=== PATIENT | female | born 1980 | race Caucasian/White ===

== ENCOUNTER → 2017-04-02 | Outpatient (CLI) | payer OTHER ==
[~2017-04-02] MED LIST: DOCU100C37 PO; HYDR-34 PO; IBUP-1773 PO; MEDR150V IM; OMEP20CA12 PO; SIME80TA16 PO; TRAZ-28 PO
--- NOTE | 2017-04-02 18:27 | Diagnostic Imaging Report ---
INDICATION: Bilateral breast lumps. No prior mammograms are available for comparison. This is a baseline study. The current study was also evaluated with a Computer Aided Detection (CAD) system. Both breasts are heterogeneously dense, limiting the sensitivity of mammography. BB markers were placed at the areas of palpable abnormality in the upper outer portions of both breasts. There are lobulated circumscribed masses noted bilaterally. Larger mass is in the upper outer right breast at posterior depth, presumably a cyst or fibroadenoma. Slightly smaller circumscribed lesion in the upper outer left breast at mid anterior depth is seen, suggestive of a cyst or fibroadenoma. These areas will be evaluated with ultrasound. No other masses are seen. No malignant appearing microcalcifications are identified. The axillae are unremarkable. IMPRESSION: Lobulated circumscribed masses in the upper outer aspects of both breasts, with fairly benign features, as described above. Further evaluation with ultrasound is recommended. ACR BI-RADS Category 0: Incomplete. (Needs additional imaging evaluation). Result letter will be mailed to the patient. Note: At least 10% of breast cancer is not imaged by mammography. Dictated by: Dictated on workstation # [id number]
--- NOTE | 2017-04-02 18:31 | Diagnostic Imaging Report ---
INDICATION: Bilateral breast lumps and abnormal mammogram. COMPARISON: Comparison is made with diagnostic mammogram earlier the same day. FINDINGS: RIGHT BREAST: Sonographic interrogation of the upper-outer right breast was performed. There is a macrolobulated hypoechoic solid appearing mass at the 10:30 location of the right breast, 7 cm from the nipple measuring 2.1 x 1.8 x 2.6 cm. No definite internal blood flow is seen. No posterior acoustic shadowing is seen. No other masses on the right are identified. LEFT BREAST: Sonographic interrogation of the outer left breast was performed. There is a macrolobulated hypoechoic solid appearing mass at the 3 o'clock location of the left breast, 4 cm from the nipple. This measures 1.8 x 1.1 x 1.8 cm. No internal vascularity is seen. No posterior acoustic shadowing is identified. No other masses are identified. IMPRESSION: Bilateral circumscribed, macrolobulated solid masses corresponding with the areas of palpable abnormality and the mammographic abnormalities. Imaging features are most suggestive of fibroadenomas. Even so, followup bilateral breast ultrasound in six months is recommended to confirm stability. If patient desires, ultrasound core biopsy of the larger lesion in the right breast which causes the patient pain could be performed. ACR BI-RADS Category 3: Probably benign findings. Dictated by: Dictated on workstation # [id number]
== END ==
LOC: RAD 08:08
PROVIDERS: ATTEND Nurse Practitioner Family
DX: N63.21 Unspecified lump in the left breast, upper outer quadrant (principal); N63.11 Unspecified lump in the right breast, upper outer quadrant
CPT/HCPCS: 76642; 77066

== ENCOUNTER 2017-05-27 05:33 | Outpatient (CLI) | payer OTHER ==
[~2017-05-27] VITALS: Ht 162.6 cm; Wt 74.4 kg
== END 2017-05-27 10:14 ==
LOC: PREOP 05:33
PROVIDERS: ATTEND Surgery
DX: Z01.818 Encounter for other preprocedural examination (principal); N63.10 Unspecified lump in the right breast, unspecified quadrant

== ENCOUNTER 2017-05-31 11:21 | Day surgery (SDC) | payer OTHER ==
[~2017-05-31] VITALS: Ht 162.6 cm; Wt 74.4 kg
[~2017-05-31 11:21] MED LIST changes: +TRAZ-189 PO; -TRAZ-28 PO
[2017-05-31] MEDS ORDERED: ceFAZolin 2 GM IV Premixed 50 ML IV ONE (11:45)
[2017-05-31 11:50] VITALS: BP 123/94
[2017-05-31] MEDS: LACTATED RINGERS 1,000 ML IV PRN ×3 (11:55→16:46)
[2017-05-31] MEDS ORDERED: CATHETER FLUSH 10 ML SYR IV PRN (12:00)
[2017-05-31] MEDS ORDERED: ONDANSETRON 4 MG/2 ML (SDV) Z0FRAN ONE (12:48)
[2017-05-31] MEDS ORDERED: SEVOFLURANE (ULTANE) 15 ML INHAL SOLN ONE (12:48)
[2017-05-31] MEDS ORDERED: DEXAMETHASONE 10 MG/ML (DECADRON) 1 ML VIAL ONE (12:48)
[2017-05-31] MEDS ORDERED: LIDOCAINE PF 2% 5 ML (XYLOCAINE) VIAL ONE (12:48)
[2017-05-31] MEDS ORDERED: proPOfol 200 MG/20 ML (DIPRIVAN) VIAL IV ONE (12:48)
[2017-05-31] MEDS ORDERED: fentaNYL INJECTION 100 MCG/2 ML AMP ONE ×2 (12:49→15:17)
[2017-05-31] MEDS ORDERED: MIDAZOLAM 2 MG/2 ML (VERSED) VIAL ONE (12:49)
[2017-05-31] MEDS ORDERED: LIDOCAINE/EPI 1%-1:200,000 (XYLOCAINE) 10 ML VIAL ONE (12:58)
[2017-05-31] MEDS ORDERED: morphine INJ 10 MG/ML 1ML (SYR OR VIAL) ONE (15:17)
--- NOTE | 2017-05-31 15:45 | Progress Note-Pre Operative ---
Pre-Operative Progress Note H&P Reviewed The H&P was reviewed, patient examined and no changes noted. Time Seen by Provider: 15:29 Date H&P Reviewed: May 31, 2017 Time H&P Reviewed: 15:29 Pre-Operative Diagnosis: Right breast mass CARROLL HOUSER DO May 31, 2017 15:45
[2017-05-31] MEDS ORDERED: HYDROmorphone 2 MG/ML VIAL (DILAUDID) ONE (15:55)
[2017-05-31] MEDS ORDERED: KETOROLAC 30 MG/ML VIAL ONE (16:29)
--- NOTE | 2017-05-31 16:45 | Progress Note-Post Operative ---
Post-Operative Progess Note Surgeon (s)/Roofer (s) Surgeon CARROLL HOUSER DO Roofer: none Pre-Operative Diagnosis Right breast mass Post-Operative Diagnosis same pending path Procedure & Operative Findings Date of Procedure 05/31/17 Procedure Performed/Findings Exc right breast mass Anesthesia Type LMA Estimated Blood Loss Estimated blood loss (mL): less than 10ml Specimens/Packing Specimens Removed right breast mass CARROLL HOUSER DO May 31, 2017 16:45
[2017-05-31] MEDS ORDERED: ACHD5005 PO (16:46)
--- NOTE | 2017-05-31 16:48 | Discharge Inst-Surgical ---
Discharge Inst-Surgical Depart Medication/Instructions New, Converted or Re-Newed RX: RX Given to Pt/Family Patient Instructions Follow up Appt: Make appointment for 1 week. Instructions: No lifting greater than 10 pounds. No strenuous activity. May shower in 24 hours, no tub bath or soaking. Use incentive spirometer at home as directed. No Smoking Skin/Wound Care: May remove bandages. You need to leave the Dermabond on over incision it will fall off on its own. Symptoms to Report: Appetite Changes, Extremity Discoloration, Numbness/Tingling, Swelling Increased , Bleeding Excessive, Eyesight Changes, Pain Increased, Urine Color Change, Constipation(Persistent), Fever over 101 degree F, Pain/Pressure in chest, Urinating Difficulty, Cough Up/Vomit Blood, Heart Beat Irreg/Pounding, Pain/ Pressure in jaw, Vaginal Bleeding Increase, Cramps in feet or legs, Lightheadedness, Pain/Pressure in shoulder, Diarrhea(Persistent), Memory Changes Suddenly, Questions/Concerns, Weight gain consecutive days, Dizziness/ Fainting, Nausea/Vomiting, Shortness of Breath, Weight gain over 2 pounds If questions or concerns contact your physician Or seek help at emergency department. Activity Activity Instructions: Avoid Stress to Incision Diet Discharge Diet: No Restrictions If Any Problems/Questions/Issu: Contact Your Physician, Go to Emergency Room Skin/Wound Care Infection Signs and Symptoms: Increased Redness, Foul Odor of Wound, Increased Drainage, Skin Itchy or Has a Rash, Increased Swelling, Temperature Above 101 F Wound Care Comment: Wear a tight sports bra 07/09 for next week Bathing Instructions: Shower Stitches/Mitchell/Dermabond Dis: Dermabond Ice Pack: Ice On and Off Site CARROLL HOUSER DO May 31, 2017 16:48
[2017-05-31] MEDS ORDERED: MEPERIDINE (DEMEROL) INJ 50 MG/ML IVP PRN (17:00)
[2017-05-31] MEDS ORDERED: fentaNYL INJECTION 100 MCG/2 ML AMP IVP PRN (17:00)
[2017-05-31] MEDS ORDERED: ONDANSETRON 4 MG/2 ML (SDV) Z0FRAN IVP PRN (17:00)
[2017-05-31] MEDS ORDERED: HYDROmorphone 2 MG/ML VIAL (DILAUDID) IVP PRN (17:00)
[2017-05-31 17:40] VITALS: BP 127/75
[2017-05-31] MEDS ORDERED: ONDN4T PO (17:48)
[2017-05-31 18:10] VITALS: BP 117/89
[2017-05-31 18:12] VITALS: BP 117/89
--- NOTE | 2017-06-01 01:01 | OPERATIVE REPORT ---
DATE OF SERVICE: PREOPERATIVE DIAGNOSES: Right breast mass. POSTOPERATIVE DIAGNOSIS: Right breast mass, pending pathology. PROCEDURE: Excision of right breast mass. SURGEON: Dr. Wong. ECD: None. ANESTHESIA: General endotracheal tube. SPECIMEN: Right breast mass. BLOOD LOSS: Less than 10 mL. FLUIDS: Per anesthesia. POSTOPERATIVE CONDITION: Stable. INDICATION FOR PROCEDURE: The patient is a 36-year-old female who has had a mass in the right breast getting bigger and causing her pain, rated it as BI-RADS category 3. She wanted this removed. FINDINGS: The patient's right breast mass removed and sent to pathology. PROCEDURE NOTE: After informed consent was obtained, the patient was brought to the operating room, placed on the table in supine position. She was sterilely prepped and draped in normal fashion. Local lidocaine was used to infiltrate the skin along the areolar line from about 11 o'clock to 7 o'clock and then around the upper outer quadrant and lower outer quadrant in a regional block. I then made an incision #15 blade. Right in the areolar line from about 11 o'clock to 7 o'clock carried down to skin into subcutaneous tissue then deepened down subcutaneous tissue with Bovie electrocautery, dissecting down towards the chest wall towards this mass. Able to palpate this mass, grasped it with an Allis and then started dissecting around it by using Bovie electrocautery. Finally, did able to get a completely removed, passed off table and sent to pathology. Copiously irrigated with sterile water. Hemostasis obtained using Bovie electrocautery. I then elected to close the incision with 4-0 undyed Monocryl 4 interrupted subcuticular stitches. Area was cleaned and dried. Pressure dressing placed. The patient then transferred to recovery in stable condition. Needle counts were correct at the end of the case. Job ID: [id number] DocumentID: [id number] Dictated Date: 05/31/2017 16:43:37 [employer] Logger Date: 06/01/2017 01:00:55 Dictated By: CARROLL WONG DO
== END 2017-05-31 18:12 | disposition home or self-care (01) ==
LOC: SDC 11:21
PROVIDERS: ATTEND Surgery
DX: D24.2 Benign neoplasm of left breast (principal); Z11.2 Encounter for screening for other bacterial diseases; F17.210 Nicotine dependence, cigarettes, uncomplicated; Z88.5 Allergy status to narcotic agent
CPT/HCPCS: 87081; 88305

== ENCOUNTER 2017-09-29 13:51 | Emergency (ER) | payer OTHER ==
[~2017-09-29] VITALS: Ht 162.6 cm; Wt 74.8 kg
[~2017-09-29 13:51] MED LIST changes: +ACHD5005 PO; +ONDN4T PO
--- OUTSIDE RECORDS SUMMARY | 2017-09-29 13:57 | XMS REPORT | Continuity of Care Document ---
Author Author [facility] Address Unknown Phone Unavailable Allergies Active Description Code Type Severity Reaction Onset Reported/Identified Relationship to Patient Clinical Status Yes codeine Drug Allergy 11/30/2008 Yes codeine Drug Allergy N/A N/A 11/30/2008 Medications There is no data. Problems Date Dx Coded Attending Type Code Diagnosis Diagnosed By 11/30/2008 616.10 VAGINITIS AND VULVOVAGINITIS, UNSPECIFIED 11/30/2008 616.10 VAGINITIS AND VULVOVAGINITIS, UNSPECIFIED 11/30/2008 YUMIKO SHEIKH DO 616.10 VAGINITIS AND VULVOVAGINITIS, UNSPECIFIED 11/30/2008 YUMIKO SHEIKH DO 616.10 VAGINITIS AND VULVOVAGINITIS, UNSPECIFIED 11/30/2008 YUMIKO SHEIKH DO 616.10 VAGINITIS AND VULVOVAGINITIS, UNSPECIFIED 11/30/2008 ILANA TEJEDA APRN 616.10 VAGINITIS AND VULVOVAGINITIS, UNSPECIFIED 11/30/2008 YUMIKO SHEIKH DO 616.10 VAGINITIS AND VULVOVAGINITIS, UNSPECIFIED 11/30/2008 YUMIKO SHEIKH DO 616.10 VAGINITIS AND VULVOVAGINITIS, UNSPECIFIED 11/30/2008 YUMIKO SHEIKH DO 616.10 VAGINITIS AND VULVOVAGINITIS, UNSPECIFIED 11/30/2008 MARYLIN JAMES APRN 616.10 VAGINITIS AND VULVOVAGINITIS, UNSPECIFIED 11/30/2008 YUMIKO SHEIKH DO 616.10 VAGINITIS AND VULVOVAGINITIS, UNSPECIFIED 11/30/2008 YUMIKO SHEIKH DO 616.10 VAGINITIS AND VULVOVAGINITIS, UNSPECIFIED 03/12/2009 842.00 WRIST SPRAIN - LEFT 03/12/2009 842.00 WRIST SPRAIN - LEFT 03/12/2009 SHEIKH DO, YUMIKO K 842.00 WRIST SPRAIN - LEFT 03/12/2009 SHEIKH DO, YUMIKO K 842.00 WRIST SPRAIN - LEFT 03/12/2009 SHEIKH DO, YUMIKO K 842.00 WRIST SPRAIN - LEFT 03/12/2009 ILANA TEJEDA APRN 842.00 WRIST SPRAIN - LEFT 03/12/2009 SHEIKH DO, YUMIKO K 842.00 WRIST SPRAIN - LEFT 03/12/2009 SHEIKH DO, YUMIKO K 842.00 WRIST SPRAIN - LEFT 03/12/2009 SHEIKH DO, YUMIKO K 842.00 WRIST SPRAIN - LEFT 03/12/2009 MARYLIN JAMES APRN 842.00 WRIST SPRAIN - LEFT 03/12/2009 SHEIKH DO, YUMIKO K 842.00 WRIST SPRAIN - LEFT 03/12/2009 SHEIKH DO, YUMIKO K 842.00 WRIST SPRAIN - LEFT 03/24/2010 372.00 ACUTE CONJUNCTIVITIS UNSPECIFIED 03/24/2010 372.00 ACUTE CONJUNCTIVITIS UNSPECIFIED 03/24/2010 SHEIKH DO, YUMIKO K 372.00 ACUTE CONJUNCTIVITIS UNSPECIFIED 03/24/2010 SHEIKH DO, YUMIKO K 372.00 ACUTE CONJUNCTIVITIS UNSPECIFIED 03/24/2010 SHEIKH DO, YUMIKO K 372.00 ACUTE CONJUNCTIVITIS UNSPECIFIED 03/24/2010 ILANA TEJEDA APRN 372.00 ACUTE CONJUNCTIVITIS UNSPECIFIED 03/24/2010 SHEIKH DO, YUMIKO K 372.00 ACUTE CONJUNCTIVITIS UNSPECIFIED 03/24/2010 SHEIKH DO, YUMIKO K 372.00 ACUTE CONJUNCTIVITIS UNSPECIFIED 03/24/2010 SHEIKH DO, YUMIKO K 372.00 ACUTE CONJUNCTIVITIS UNSPECIFIED 03/24/2010 MARYLIN JAMES APRN 372.00 ACUTE CONJUNCTIVITIS UNSPECIFIED 03/24/2010 SHEIKH DO, YUMIKO K 372.00 ACUTE CONJUNCTIVITIS UNSPECIFIED 03/24/2010 SHEIKH DO, YUMIKO K 372.00 ACUTE CONJUNCTIVITIS UNSPECIFIED 02/12/2011 723.5 TORTICOLLIS UNSPECIFIED 02/12/2011 728.85 SPASM OF MUSCLE 02/12/2011 723.5 TORTICOLLIS UNSPECIFIED 02/12/2011 728.85 SPASM OF MUSCLE 02/12/2011 SHEIKH DO, YUMIKO K 723.5 TORTICOLLIS UNSPECIFIED 02/12/2011 SHEIKH DO, YUMIKO K 728.85 SPASM OF MUSCLE 02/12/2011 SHEIKH DO, YUMIKO K 723.5 TORTICOLLIS UNSPECIFIED 02/12/2011 SHEIKH DO, YUMIKO K 728.85 SPASM OF MUSCLE 02/12/2011 SHEIKH DO, YUMIKO K 723.5 TORTICOLLIS UNSPECIFIED 02/12/2011 SHEIKH DO, YUMIKO K 728.85 SPASM OF MUSCLE 02/12/2011 FLOLADELINA MONTANONILANA E 723.5 TORTICOLLIS UNSPECIFIED 02/12/2011 HELLWIG AUTISM SPECIALISTILANA E 728.85 SPASM OF MUSCLE 02/12/2011 SHEIKH DO, YUMIKO K 723.5 TORTICOLLIS UNSPECIFIED 02/12/2011 SHEIKH DO, YUMIKO K 728.85 SPASM OF MUSCLE 02/12/2011 SHEIKH DO, YUMIKO K 723.5 TORTICOLLIS UNSPECIFIED 02/12/2011 SHEIKH DO, YUMIKO K 728.85 SPASM OF MUSCLE 02/12/2011 SHEIKH DO, YUMIKO K 723.5 TORTICOLLIS UNSPECIFIED 02/12/2011 SHEIKH DO, YUMIKO K 728.85 SPASM OF MUSCLE 02/12/2011 MARYLIN JAMES APRN 723.5 TORTICOLLIS UNSPECIFIED 02/12/2011 MARYLIN JAMES APRN 728.85 SPASM OF MUSCLE 02/12/2011 SHEIKH DO, YUMIKO K 723.5 TORTICOLLIS UNSPECIFIED 02/12/2011 SHEIKH DO, YUMIKO K 728.85 SPASM OF MUSCLE 02/12/2011 SHEIKH DO, YUMIKO K 723.5 TORTICOLLIS UNSPECIFIED 02/12/2011 SHEIKH DO, YUMIKO K 728.85 SPASM OF MUSCLE 07/14/2011 620.2 OVARIAN CYST 07/14/2011 V25.01 CONTRACEPTION - ORAL CONTRACEPTION 07/14/2011 V74.5 STD SCREEN 07/14/2011 620.2 OVARIAN CYST 07/14/2011 V25.01 CONTRACEPTION - ORAL CONTRACEPTION 07/14/2011 V74.5 STD SCREEN 07/14/2011 SHEIKH DO YUMIKO K 620.2 OVARIAN CYST 07/14/2011 SHEIKH DO, YUMIKO K V25.01 CONTRACEPTION - ORAL CONTRACEPTION 07/14/2011 SHEIKH DO YUMIKO K V74.5 STD SCREEN 07/14/2011 SHEIKH DO, YUMIKO K 620.2 OVARIAN CYST 07/14/2011 SHEIKH DO, YUMIKO K V25.01 CONTRACEPTION - ORAL CONTRACEPTION 07/14/2011 SHEIKH DO, YUMIKO K V74.5 STD SCREEN 07/14/2011 SHEIKH DO, YUMIKO K 620.2 OVARIAN CYST 07/14/2011 SHEIKH DO, YUMIKO K V25.01 CONTRACEPTION - ORAL CONTRACEPTION 07/14/2011 SHEIKH DO, YUMIKO K V74.5 STD SCREEN 07/14/2011 PIERRE TEJEDA APRNE E 620.2 OVARIAN CYST 07/14/2011 NIKHIL CROOK ILANA E V25.01 CONTRACEPTION - ORAL CONTRACEPTION 07/14/2011 NIKHIL CROOK ILANA E V74.5 STD SCREEN 07/14/2011 SHEIKH DO, YUMIKO K 620.2 OVARIAN CYST 07/14/2011 SHEIKH DO, YUMIKO K V25.01 CONTRACEPTION - ORAL CONTRACEPTION 07/14/2011 SHEIKH DO, YUMIKO K V74.5 STD SCREEN 07/14/2011 SHEIKH DO, YUMIKO K 620.2 OVARIAN CYST 07/14/2011 SHEIKH DO, YUMIKO K V25.01 CONTRACEPTION - ORAL CONTRACEPTION 07/14/2011 SHEIKH DO, YUMIKO K V74.5 STD SCREEN 07/14/2011 SHEIKH DO, YUMIKO K 620.2 OVARIAN CYST 07/14/2011 SHEIKH DO, YUMIKO K V25.01 CONTRACEPTION - ORAL CONTRACEPTION 07/14/2011 SHEIKH DO, YUMIKO K V74.5 STD SCREEN 07/14/2011 MARYLIN JAMES APRN 620.2 OVARIAN CYST 07/14/2011 MARYLIN JAMES APRN V25.01 CONTRACEPTION - ORAL CONTRACEPTION 07/14/2011 MARYLIN JAMES APRN V74.5 STD SCREEN 07/14/2011 SHEIKH DO, YUMIKO K 620.2 OVARIAN CYST 07/14/2011 SHEIKH DO, YUMIKO K V25.01 CONTRACEPTION - ORAL CONTRACEPTION 07/14/2011 SHEIKH DO, YUMIKO K V74.5 STD SCREEN 07/14/2011 SHEIKH DO, YUMIKO K 620.2 OVARIAN CYST 07/14/2011 SHEIKH DO, YUMIKO K V25.01 CONTRACEPTION - ORAL CONTRACEPTION 07/14/2011 SHEIKH DO, YUMIKO K V74.5 STD SCREEN 01/01/2012 625.9 pelvic pain 01/01/2012 625.9 pelvic pain 01/01/2012 SHEIKH DO, YUMIKO K 625.9 pelvic pain 01/01/2012 SHEIKH DO, YUMIKO K 625.9 pelvic pain 01/01/2012 SHEIKH DO, YUMIKO K 625.9 pelvic pain 01/01/2012 ILANA TEJEDA APRN 625.9 pelvic pain 01/01/2012 SHEIKH DO, YUMIKO K 625.9 pelvic pain 01/01/2012 SHEIKH DO, YUMIKO K 625.9 pelvic pain 01/01/2012 SHEIKH DO, YUMIKO K 625.9 pelvic pain 01/01/2012 MARYLIN JAMES APRN 625.9 pelvic pain 01/01/2012 SHEIKH DO, YUMIKO K 625.9 pelvic pain 01/01/2012 SHEIKH DO, YUMIKO K 625.9 pelvic pain 01/13/2012 466.0 BRONCHITIS, ACUTE 01/13/2012 466.0 BRONCHITIS, ACUTE 01/13/2012 SHEIKH DO, YUMIKO K 466.0 BRONCHITIS, ACUTE 01/13/2012 SHEIKH DO, YMUIKO K 466.0 BRONCHITIS, ACUTE 01/13/2012 SHEIKH DO, YUMIKO K 466.0 BRONCHITIS, ACUTE 01/13/2012 ILANA TEJEDA APRN 466.0 BRONCHITIS, ACUTE 01/13/2012 SHEIKH DO, YUMIKO K 466.0 BRONCHITIS, ACUTE 01/13/2012 SHEIKH DO, YUMIKO K 466.0 BRONCHITIS, ACUTE 01/13/2012 SHEIKH DO, YUMIKO K 466.0 BRONCHITIS, ACUTE 01/13/2012 MARYLIN JAMES APRN 466.0 BRONCHITIS, ACUTE 01/13/2012 SHEIKH DO, YUMIKO K 466.0 BRONCHITIS, ACUTE 01/13/2012 SHEIKH DO, YUMIKO K 466.0 BRONCHITIS, ACUTE 03/21/2012 487.1 INFLUENZA WITH OTHER RESPIRATORY MANIFESTATIONS 03/21/2012 780.60 FEVER UNSPECIFIED 03/21/2012 784.0 HEADACHE 03/21/2012 487.1 INFLUENZA WITH OTHER RESPIRATORY MANIFESTATIONS 03/21/2012 780.60 FEVER UNSPECIFIED 03/21/2012 784.0 HEADACHE 03/21/2012 SHEIKH DO, YUMIKO K 487.1 INFLUENZA WITH OTHER RESPIRATORY MANIFESTATIONS 03/21/2012 SHEIKH DO, YUMIKO K 780.60 FEVER UNSPECIFIED 03/21/2012 SHEIKH DO, YUMIKO K 784.0 HEADACHE 03/21/2012 SHEIKH DO, YUMIKO K 487.1 INFLUENZA WITH OTHER RESPIRATORY MANIFESTATIONS 03/21/2012 SHEIKH DO, YUMIKO K 780.60 FEVER UNSPECIFIED 03/21/2012 SHEIKH DO, YUMIKO K 784.0 HEADACHE 03/21/2012 SHEIKH DO, YUMIKO K 487.1 INFLUENZA WITH OTHER RESPIRATORY MANIFESTATIONS 03/21/2012 SHEIKH DO, YUMIKO K 780.60 FEVER UNSPECIFIED 03/21/2012 SHEIKH DO, YUMIKO K 784.0 HEADACHE 03/21/2012 HELLWIG AUTISM SPECIALISTILANA E 487.1 INFLUENZA WITH OTHER RESPIRATORY MANIFESTATIONS 03/21/2012 HELLWIG AUTISM SPECIALISTILANA E 780.60 FEVER UNSPECIFIED 03/21/2012 HELWIG AUTISM SPECIALIST, ILANA E 784.0 HEADACHE 03/21/2012 SHEIKH DO, YUMIKO K 487.1 INFLUENZA WITH OTHER RESPIRATORY MANIFESTATIONS 03/21/2012 SHEIKH DO, YUMIKO K 780.60 FEVER UNSPECIFIED 03/21/2012 SHEIKH DO, YUMIKO K 784.0 HEADACHE 03/21/2012 SHEIKH DO, YUMIKO K 487.1 INFLUENZA WITH OTHER RESPIRATORY MANIFESTATIONS 03/21/2012 SHEIKH DO, YUMIKO K 780.60 FEVER UNSPECIFIED 03/21/2012 SHEIKH DO, YUMIKO K 784.0 HEADACHE 03/21/2012 SHEIKH DO, YUMIKO K 487.1 INFLUENZA WITH OTHER RESPIRATORY MANIFESTATIONS 03/21/2012 SHEIKH DO, YUMIKO K 780.60 FEVER UNSPECIFIED 03/21/2012 SHEIKH DO, YUMIKO K 784.0 HEADACHE 03/21/2012 SHEIKH DO, YUMIKO K 487.1 INFLUENZA WITH OTHER RESPIRATORY MANIFESTATIONS 03/21/2012 SHEIKH DO, YUMIKO K 780.60 FEVER UNSPECIFIED 03/21/2012 SHEIKH DO, YUMIKO K 784.0 HEADACHE 03/21/2012 SHEIKH DO, YUMIKO K 487.1 INFLUENZA WITH OTHER RESPIRATORY MANIFESTATIONS 03/21/2012 SHEIKH DO, YUMIKO K 780.60 FEVER UNSPECIFIED 03/21/2012 SHEIKH DO, YUMIKO K 784.0 HEADACHE 04/21/2012 372.72 Subconjunctival Hemorrhage Right Eye 04/21/2012 SHEIKH DO, YUMIKO K 372.72 Subconjunctival Hemorrhage Right Eye 04/21/2012 SHEIKH DO, YUMIKO K 372.72 Subconjunctival Hemorrhage Right Eye 04/21/2012 SHEIKH DO, YUMIKO K 372.72 Subconjunctival Hemorrhage Right Eye 04/21/2012 HELLWIG AUTISM SPECIALIST, ILANA E 372.72 Subconjunctival Hemorrhage Right Eye 04/21/2012 SHEIKH DO, YUMIKO K 372.72 Subconjunctival Hemorrhage Right Eye 04/21/2012 SHEIKH DO, YUMIKO K 372.72 Subconjunctival Hemorrhage Right Eye 04/21/2012 SHEIKH DO, YUMIKO K 372.72 Subconjunctival Hemorrhage Right Eye 04/21/2012 SHEIKH DO, YUMIKO K 372.72 Subconjunctival Hemorrhage Right Eye 04/21/2012 SHEIKH DO, YUMIKO K 372.72 Subconjunctival Hemorrhage Right Eye 05/09/2012 SHEIKH DO, YUMIKO K 462 PHARYNGITIS ACUTE 05/09/2012 SHEIKH DO, YUMIKO K 465.9 UPPER RESPIRATORY INFECTION 05/09/2012 SHEIKH DO, YUMIKO K 462 PHARYNGITIS ACUTE 05/09/2012 SHEIKH DO, YUMIKO K 465.9 UPPER RESPIRATORY INFECTION 05/09/2012 SHEIKH DO, YUMIKO K 462 PHARYNGITIS ACUTE 05/09/2012 SHEIKH DO, YUMIKO K 465.9 UPPER RESPIRATORY INFECTION 05/09/2012 HELLWIG AUTISM SPECIALIST, ILANA E 462 PHARYNGITIS ACUTE 05/09/2012 HELLWIG AUTISM SPECIALIST, ILANA E 465.9 UPPER RESPIRATORY INFECTION 05/09/2012 SHEIKH DO, YUMIKO K 462 PHARYNGITIS ACUTE 05/09/2012 SHEIKH DO, YUMIKO K 465.9 UPPER RESPIRATORY INFECTION 05/09/2012 SHEIKH DO, YUMIKO K 462 PHARYNGITIS ACUTE 05/09/2012 SHEIKH DO, YUMIKO K 465.9 UPPER RESPIRATORY INFECTION 05/09/2012 SHEIKH DO, YUMIKO K 462 PHARYNGITIS ACUTE 05/09/2012 SHEIKH DO, YUMIKO K 465.9 UPPER RESPIRATORY INFECTION 05/09/2012 SHEIKH DO, YUMIKO K 462 PHARYNGITIS ACUTE 05/09/2012 SHEIKH DO, YUMIKO K 465.9 UPPER RESPIRATORY INFECTION 05/09/2012 SHEIKH DO, YUMIKO K 462 PHARYNGITIS ACUTE 05/09/2012 SHEIKH DO, YUMIKO K 465.9 UPPER RESPIRATORY INFECTION 08/29/2012 SHEIKH DO, YUMIKO K 719.41 PAIN IN JOINT INVOLVING SHOULDER REGION 08/29/2012 SHEIKH DO, YUMIKO K 723.1 CERVICALGIA 08/29/2012 SHEIKH DO, YUMIKO K 719.41 PAIN IN JOINT INVOLVING SHOULDER REGION 08/29/2012 SHEIKH DO, YUMIKO K 723.1 CERVICALGIA 08/29/2012 SHEIKH DO, YUMIKO K 719.41 PAIN IN JOINT INVOLVING SHOULDER REGION 08/29/2012 SHEIKH DO, YUMIKO K 723.1 CERVICALGIA 08/29/2012 ILANA TEJEDA APRN 719.41 PAIN IN JOINT INVOLVING SHOULDER REGION 08/29/2012 ILANA TEJEDA APRN E 723.1 CERVICALGIA 08/29/2012 SHEIKH DO, YUMIKO K 719.41 PAIN IN JOINT INVOLVING SHOULDER REGION 08/29/2012 SHEIKH DO, YUMIKO K 723.1 CERVICALGIA 08/29/2012 SHEIKH DO, YUMIKO K 719.41 PAIN IN JOINT INVOLVING SHOULDER REGION 08/29/2012 SHEIKH DO, YUMIKO K 723.1 CERVICALGIA 08/29/2012 SHEIKH DO, YUMIKO K 719.41 PAIN IN JOINT INVOLVING SHOULDER REGION 08/29/2012 SHEIKH DO, YUMIKO K 723.1 CERVICALGIA 08/29/2012 SHEIKH DO, YUMIKO K 719.41 PAIN IN JOINT INVOLVING SHOULDER REGION 08/29/2012 SHEIKH DO, YUMIKO K 723.1 CERVICALGIA 08/29/2012 SHEIKH DO, YUMIKO K 719.41 PAIN IN JOINT INVOLVING SHOULDER REGION 08/29/2012 SHEIKH DO, YUMIKO K 723.1 CERVICALGIA 11/18/2012 SHEIKH DO, YUMIKO K 599.0 URINARY TRACT INFECTION SITE NOT SPECIFIED 11/18/2012 SHEIKH DO, YUMIKO K 799.22 IRRITABILITY 11/18/2012 SHEIKH DO, YUMIKO K 599.0 URINARY TRACT INFECTION SITE NOT SPECIFIED 11/18/2012 SHEIKH DO, YUMIKO K 799.22 IRRITABILITY 11/18/2012 SHEIKH DO, YUMIKO K 599.0 URINARY TRACT INFECTION SITE NOT SPECIFIED 11/18/2012 SHEIKH DO, YUMIKO K 799.22 IRRITABILITY 11/18/2012 ILANA TEJEDA APRN 599.0 URINARY TRACT INFECTION SITE NOT SPECIFIED 11/18/2012 ILANA TEJEDA APRN 799.22 IRRITABILITY 11/18/2012 SHEIKH DO, YUMIKO K 599.0 URINARY TRACT INFECTION SITE NOT SPECIFIED 11/18/2012 SHEKIH DO, YUMIKO K 799.22 IRRITABILITY 11/18/2012 SHEIKH DO, YUMIKO K 599.0 URINARY TRACT INFECTION SITE NOT SPECIFIED 11/18/2012 SHEIKH DO, YUMIKO K 799.22 IRRITABILITY 11/18/2012 SHEIKH DO, YUMIKO K 599.0 URINARY TRACT INFECTION SITE NOT SPECIFIED 11/18/2012 SHEIKH DO, YUMIKO K 799.22 IRRITABILITY 11/18/2012 SHEIKH DO, YUMIKO K 599.0 URINARY TRACT INFECTION SITE NOT SPECIFIED 11/18/2012 SHEIKH DO, YUMIKO K 799.22 IRRITABILITY 11/18/2012 SHEIKH DO, YUMIKO K 599.0 URINARY TRACT INFECTION SITE NOT SPECIFIED 11/18/2012 SHEIKH DO, YUMIKO K 799.22 IRRITABILITY 01/27/2013 SHEIKH DO, YUMIKO K 381.01 ACUTE SEROUS OTITIS MEDIA 01/27/2013 SHEIKH DO, YUMIKO K 780.52 INSOMNIA UNSPECIFIED 01/27/2013 SHEIKH DO, YUMIKO K 381.01 ACUTE SEROUS OTITIS MEDIA 01/27/2013 SHEIKH DO, YUMIKO K 780.52 INSOMNIA UNSPECIFIED 01/27/2013 ILANA TEJEDA APRN 381.01 ACUTE SEROUS OTITIS MEDIA 01/27/2013 ILANA TEJEDA APRN 780.52 INSOMNIA UNSPECIFIED 01/27/2013 SHEIKH DO, YUMIKO K 381.01 ACUTE SEROUS OTITIS MEDIA 01/27/2013 SHEIKH DO, YUMIKO K 780.52 INSOMNIA UNSPECIFIED 01/27/2013 SHEIKH DO, YUMIKO K 381.01 ACUTE SEROUS OTITIS MEDIA 01/27/2013 SHEIKH DO, YUMIKO K 780.52 INSOMNIA UNSPECIFIED 01/27/2013 SHEIKH DO, YUMIKO K 381.01 ACUTE SEROUS OTITIS MEDIA 01/27/2013 SHEIKH DO, YUMIKO K 780.52 INSOMNIA UNSPECIFIED 01/27/2013 SHEIKH DO, YUMIKO K 381.01 ACUTE SEROUS OTITIS MEDIA 01/27/2013 SHEIKH DO, YUMIKO K 780.52 INSOMNIA UNSPECIFIED 01/27/2013 SHEIKH DO, YUMIKO K 381.01 ACUTE SEROUS OTITIS MEDIA 01/27/2013 SHEIKH DO, YUMIKO K 780.52 INSOMNIA UNSPECIFIED 03/31/2013 SHEIKH DO, YUMIKO K 719.45 PAIN IN JOINT INVOLVING PELVIC REGION AND THIGH 03/31/2013 SHEIKH DO, YUMIKO K 719.46 PAIN IN JOINT INVOLVING LOWER LEG 03/31/2013 ILANA TEJEDA APRN 719.45 PAIN IN JOINT INVOLVING PELVIC REGION AND THIGH 03/31/2013 ILANA TEJEDA APRN 719.46 PAIN IN JOINT INVOLVING LOWER LEG 03/31/2013 SHEIKH DO, YUMIKO K 719.45 PAIN IN JOINT INVOLVING PELVIC REGION AND THIGH 03/31/2013 SHEIKH DO, YUMIKO K 719.46 PAIN IN JOINT INVOLVING LOWER LEG 03/31/2013 SHEIKH DO, YUMIKO K 719.45 PAIN IN JOINT INVOLVING PELVIC REGION AND THIGH 03/31/2013 SHEIKH DO, YUMIKO K 719.46 PAIN IN JOINT INVOLVING LOWER LEG 03/31/2013 SHEIKH DO, YUMIKO K 719.45 PAIN IN JOINT INVOLVING PELVIC REGION AND THIGH 03/31/2013 SHEIKH DO, YUMIKO K 719.46 PAIN IN JOINT INVOLVING LOWER LEG 03/31/2013 SHEIKH DO, YUMIKO K 719.45 PAIN IN JOINT INVOLVING PELVIC REGION AND THIGH 03/31/2013 SHEIKH DO, YUMIKO K 719.46 PAIN IN JOINT INVOLVING LOWER LEG 03/31/2013 SHEIKH DO, YUMIKO K 719.45 PAIN IN JOINT INVOLVING PELVIC REGION AND THIGH 03/31/2013 SHEIKH DO, YUMIKO K 719.46 PAIN IN JOINT INVOLVING LOWER LEG 06/30/2013 ILANA TEJEDA APRN 623.5 LEUKORRHEA NOT SPECIFIED INFECTIVE 06/30/2013 ILANA TEJEDA APRN 695.3 ROSACEA 06/30/2013 SHEIKH DO, YUMIKO K 623.5 LEUKORRHEA NOT SPECIFIED INFECTIVE 06/30/2013 SHEIKH DO, YUMIKO K 695.3 ROSACEA 06/30/2013 SHEIKH DO, YUMIKO K 623.5 LEUKORRHEA NOT SPECIFIED INFECTIVE 06/30/2013 SHEIKH DO, YUMIKO K 695.3 ROSACEA 06/30/2013 SHEIKH DO, YUMIKO K 623.5 LEUKORRHEA NOT SPECIFIED INFECTIVE 06/30/2013 SHEIKH DO, YUMIKO K 695.3 ROSACEA 06/30/2013 SHEIKH DO, YUMIKO K 623.5 LEUKORRHEA NOT SPECIFIED INFECTIVE 06/30/2013 SHEIKH DO, YUMIKO K 695.3 ROSACEA 06/30/2013 SHEIKH DO, YUMIKO K 623.5 LEUKORRHEA NOT SPECIFIED INFECTIVE 06/30/2013 SHEIKH DO, YUMIKO K 695.3 ROSACEA 08/02/2013 SHEIKH DO, YUMIKO K 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 08/02/2013 SHEIKH DO, YUMIKO K 625.0 DYSPAREUNIA 08/02/2013 SHEIKH DO, YUMIKO K 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 08/02/2013 SHEIKH DO, YUMIKO K 625.0 DYSPAREUNIA 08/02/2013 SHEIKH DO, YUMIKO K 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 08/02/2013 SHEIKH DO, YUMIKO K 625.0 DYSPAREUNIA 08/02/2013 SHEIKH DO, YUMIKO K 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 08/02/2013 SHEIKH DO, YUMIKO K 625.0 DYSPAREUNIA 08/02/2013 SHEIKH DO, YUMIKO K 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 08/02/2013 SHEIKH DO, YUMIKO K 625.0 DYSPAREUNIA 08/11/2013 SHEIKH DO, YUMIKO K 216.9 BENIGN NEOPLASM OF SKIN SITE UNSPECIFIED 08/11/2013 SHEIKH DO, YUMIKO K 701.9 UNSPECIFIED HYPERTROPHIC AND ATROPHIC CONDITIONS OF SKIN 08/11/2013 SHEIKH DO, YUMIKO K 216.9 BENIGN NEOPLASM OF SKIN SITE UNSPECIFIED 08/11/2013 SHEIKH DO, YUMIKO K 701.9 UNSPECIFIED HYPERTROPHIC AND ATROPHIC CONDITIONS OF SKIN 08/11/2013 SHEIKH DO, YUMIKO K 216.9 BENIGN NEOPLASM OF SKIN SITE UNSPECIFIED 08/11/2013 SHEIKH DO, YUMIKO K 701.9 UNSPECIFIED HYPERTROPHIC AND ATROPHIC CONDITIONS OF SKIN 08/11/2013 SHEIKH DO, YUMIKO K 216.9 BENIGN NEOPLASM OF SKIN SITE UNSPECIFIED 08/11/2013 SHEIKH DO, YUMIKO K 701.9 UNSPECIFIED HYPERTROPHIC AND ATROPHIC CONDITIONS OF SKIN 09/11/2013 SHEIKH DO, YUMIKO K 008.8 INTESTINAL INFECTION DUE TO OTHER ORGANISM NOT ELSEWHERE CLASSIFIED 09/11/2013 SHEIKH DO, YUMIKO K 008.8 INTESTINAL INFECTION DUE TO OTHER ORGANISM NOT ELSEWHERE CLASSIFIED 09/11/2013 SHEIKH DO, YUMIKO K 008.8 INTESTINAL INFECTION DUE TO OTHER ORGANISM NOT ELSEWHERE CLASSIFIED 12/27/2013 SHEIKH DO, YUMIKO K 078.0 MOLLUSCUM CONTAGIOSUM 12/27/2013 SHEIKH DO, YUMIKO K 078.0 MOLLUSCUM CONTAGIOSUM 04/05/2014 SHEIKH DO, YUMIKO K 041.86 HELICOBACTER PYLORI [H. PYLORI] INFECTION 05/08/2014 YUMIKO SHEIKH DO 461.9 ACUTE SINUSITIS UNSPECIFIED Procedures Code Description [place] [address] US PELVIC COMPL (REFLEX CPT - 23665) 01/01/2012 06830 CULTURE UROGENITAL 01/01/2012 33094 SMEAR WET M[place] SALINE/INK 01/01/2012 76184 GC/CHLAM PROBE (STATE) 01/01/2012 75757 UA LONG DIP 01/01/2012 90958 URINE TEST (IN- HOUSE) 01/01/2012 53559 INFLUENZA A & B (IN-HOUSE) 03/21/2012 43687 UA LONG DIP 11/18/2012 48555 GC/CHLAM URINE (STATE) 11/18/2012 56986 ROUTINE VENIPUNCTURE 08/02/2013 18089 US PELVIC COMPL (REFLEX CPT - 32506) 08/02/2013 24304 TSH 08/02/2013 02835 EXCISION BENIGN LESION <0.5 CM (SPECIFY LOCATION IN MEDCIN DESCRIPTION) 08/11/2013 12470 BIOPSY SKIN (EACH ADD'L) 08/14/2013 34041 SKIN TAG REM 1-15 08/14/2013 17977 UA LONG DIP 12/27/2013 34100 CULTURE URINE 12/27/2013 Results There is no data. Encounters ACCT No. Visit Date/Time Discharge Status Pt. Type Provider Facility Loc./Unit Complaint [id number] 05/08/2014 08:29:00 05/08/2014 23:59:59 CLS Outpatient YUMIKO SHEIKH DO [id number] 12/27/2013 10:21:00 12/27/2013 23:59:59 CLS Outpatient YUMIKO SHEIKH DO [id number] 09/11/2013 15:55:00 09/11/2013 23:59:59 CLS Outpatient YUMIKO SHEIKH DO [id number] 08/11/2013 14:11:00 08/11/2013 23:59:59 CLS Outpatient YUMIKO SHEIKH DO [id number] 08/02/2013 13:44:00 08/02/2013 23:59:59 CLS Outpatient YUMIKO SHEIKH DO [id number] 06/30/2013 14:46:00 06/30/2013 23:59:59 CLS Outpatient ILANA TEJEDA APRN [id number] 03/31/2013 15:41:00 03/31/2013 23:59:59 CLS Outpatient YUMIKO SHEIKH DO [id number] 01/27/2013 08:30:00 01/27/2013 23:59:59 CLS Outpatient YUMIKO SHEIKH DO Jayshree [id number] 11/18/2012 13:27:00 11/18/2012 23:59:59 CLS Outpatient YUMIKO SHEIKH DO Jayshree [id number] 04/21/2012 09:44:00 04/21/2012 23:59:59 CLS Outpatient [id number] 03/21/2012 09:12:00 03/21/2012 23:59:59 CLS Outpatient [id number] 01/01/2012 10:23:00 01/01/2012 23:59:59 CLS Outpatient MARYLIN JAMES APRN
[2017-09-29] MEDS ORDERED: NS IV 1000 ML 1,000 ML IV SCH (14:15)
[2017-09-29] MEDS ORDERED: ONDANSETRON 4 MG/2 ML (SDV) Z0FRAN IVP ONE (14:15)
[2017-09-29 14:25] LABS: BILIRUBIN,URINE NEGATIVE (NEGATIVE); CLARITY,URINE CLEAR; COLOR,URINE AMBER; GLUCOSE, URINE (UA) NEGATIVE (NEGATIVE); KETONES,URINE NEGATIVE (NEGATIVE); LEUKOCYTE ESTERASE ,URINE 1+ (NEGATIVE); NITRITE,URINE NEGATIVE (NEGATIVE); PH,URINE 5 (5-9); PROTEIN,URINE NEGATIVE (NEGATIVE); UROBILINOGEN,URINE NORMAL (NORMAL)
[2017-09-29 14:36] LABS: BASOPHILS # (AUTO) 0.1 10^3/uL (0.0-0.1); BASOPHILS % (AUTO) 1 % (0-10); EOSINOPHILS # (AUTO) 0.5 10^3/uL (0.0-0.3); EOSINOPHILS % (AUTO) 4 % (0-10); HEMATOCRIT 42 % (35-52); HEMOGLOBIN 15.1 G/DL (11.5-16.0); LYMPHOCYTES % (AUTO) 28 % (12-44); MEAN CORPUSCULAR HEMOGLOBIN 33 PG (25-34); MEAN CORPUSCULAR HGB CONC 36 G/DL (32-36); MEAN CORPUSCULAR VOLUME 93 FL (80-99); MEAN PLATELET VOLUME 9.8 FL (7.4-10.4); MONOCYTES # (AUTO) 1.3 X 10^3 (0.0-1.0); MONOCYTES % (AUTO) 12 % (0-12); NEUTROPHILS # (AUTO) 5.8 X 10^3 (1.8-7.8); NEUTROPHILS % (AUTO) 55 % (42-75); PLATELET COUNT 356 10^3/uL (130-400); RED BLOOD COUNT 4.54 10^6/uL (4.35-5.85); RED CELL DISTRIBUTION WIDTH 13.1 % (10.0-14.5); WHITE BLOOD COUNT 10.6 10^3/uL (4.3-11.0)
--- NOTE | 2017-09-29 14:38 | ED Abdominal Pain ---
General Chief Complaint: Abdominal/GI Problems Stated Complaint: ABD PAIN Nursing Triage Note: TO ED C/O R LOWER QUAD PAIN Sepsis Screen: No Definite Risk Source of Information: Patient Exam Limitations: No Limitations History of Present Illness Date Seen by Provider: Sep 29, 2017 Time Seen by Provider: 13:56 Initial Comments Patient is a 37-year-old female who presents to the emergency room with complaints of right lower quadrant abdominal that started at 6:30 AM this morning. She reports nausea with this pain but denies vomiting, diarrhea, constipation, fevers, or urinary tract symptoms. Timing/Duration: 4-6 Hours Severity/Quality: Moderate Location: RLQ Radiation: No Radiation Activities at Onset: None Associated Symptoms: No Fever/Chills; Nausea/Vomiting; No Shortness of Air, No Swelling/Mass in Abdomen Allergies and Home Medications Allergies Coded Allergies: codeine (Verified Allergy, Severe, VOMITTING, 05/27/17) Home Medications Hydrocodone Bit/Acetaminophen 1 Tab Tab, 1 TAB PO Q6H PRN Prescribed by: CARROLL HOUSER on 05/31/17 1646 Nitrofurantoin Monohyd/M-Cryst 100 Mg Capsule, 1 TAB PO BID Prescribed by: CYNTHIA GU on 09/29/17 1527 Ondansetron 4 Mg Tab.rapdis, 4 MG SL Q4H PRN for NAUSEA/VOMITING-1ST LINE Prescribed by: CYNTHIA GU on 09/29/17 1527 Ondansetron HCl 4 Mg Tab, 4 MG PO Q8H PRN for NAUSEA/VOMITING-1ST LINE CALLED IN TO [facility] [place] Prescribed by: ANI HERNANDEZ on 05/31/17 1748 Phenazopyridine HCl 100 Mg Tablet, 100 MG PO Q8H Prescribed by: CYNTHIA GU on 09/29/17 1527 Patient Home Medication List Home Medication List Reviewed: Yes Review of Systems Constitutional: see HPI; No chills, No fever Gastrointestinal: See HPI, Abdominal Pain (right lower quadrant); Denies Constipated, Denies Diarrhea; Nausea; Denies Vomiting All Other Systems Reviewed Negative Unless Noted: Yes Past Avyncaa-Dkaudb-Diqypz Hx Past Med/Social Hx: Reviewed Nursing Past Med/Soc Hx Patient Social History Alcohol Use: Occasionally Uses Recreational Drug Use: No Smoking Status: Current Everyday Smoker Type Used: Cigarettes Recent Foreign Travel: No Contact w/Someone Who Travel: No Recent Infectious Disease Expo: No Recent Hopitalizations: No Immunizations Up To Date Date of Influenza Vaccine: Nov 30, 2016 Seasonal Allergies Seasonal Allergies: No Past Medical History Surgeries: Yes (LEEP, COLPOSCOPY) Hysterectomy Respiratory: No Cardiac: No Neurological: No Reproductive Disorders: No Female Reproductive Disorders: Denies [employer] History: Hysterectomy Sexually Transmitted Disease: No HIV/AIDS: No UTI-Chronic Gastrointestinal: No Gastroesophageal Reflux Musculoskeletal: No Endocrine: No Loss of Vision: Denies Hearing Impairment: Denies Cancer: No Psychosocial: No Integumentary: No Eczema Blood Disorders: No Adverse Reaction/Blood Tranf: No (N/A) Family Medical History Reviewed Nursing Family Hx Physical Exam Vital Signs Vital Signs - First Documented 09/29/17 13:56 Temp 97.4 Pulse 102 Resp 18 B/P (MAP) 149/86 (107) Pulse Ox 96 O2 Delivery Room Air Capillary Refill : Less Than 3 Seconds Height/Weight/BMI Height: 5'4.00" Weight: 165lbs. 0.0oz. [id number]; 28.2 BMI Method:Stated General Appearance: WD/WN, no apparent distress Respiratory: chest non-tender, lungs clear, normal breath sounds, no respiratory distress, no accessory muscle use Cardiovascular: normal peripheral pulses, regular rate, rhythm, no edema, no gallop, no JVD, no murmur Gastrointestinal: normal bowel sounds, soft, no organomegaly, no pulsatile mass , tenderness (patient is very tender in the right lower quadrant area and has rebound pain when she is palpated in the left lower quadrant that radiates back to the right lower quadrant area.) Neurologic/Psychiatric: alert, normal mood/affect, oriented x 3 Skin: normal color, warm/dry Progress/Results/Core Measures Results/Orders Lab Results Laboratory Tests Test 09/29/17 14:20 09/29/17 14:31 Range/Units Urine Color ROGELIO H Urine Clarity CLEAR Urine pH 5 5-9 Urine Specific [place] 1.025 H 1.016-1.022 Urine Protein NEGATIVE NEGATIVE Urine Glucose (UA) NEGATIVE NEGATIVE Urine Ketones NEGATIVE NEGATIVE Urine Nitrite NEGATIVE NEGATIVE Urine Bilirubin NEGATIVE NEGATIVE Urine Urobilinogen NORMAL NORMAL MG/DL Urine Leukocyte Esterase 1+ H NEGATIVE Urine RBC (Auto) 2+ H NEGATIVE Urine RBC RARE /HPF Urine WBC 5-10 H /HPF Urine Squamous Epithelial Cells 25-50 H /HPF Urine Renal Epithelial Cells NONE /HPF Urine Crystals NONE /LPF Urine Bacteria LARGE H /HPF Urine Casts NONE /LPF Urine Mucus NEGATIVE /LPF Urine Culture Indicated YES White Blood Count 10.6 4.3-11.0 10^3/uL Red Blood Count 4.54 4.35-5.85 10^6/uL Hemoglobin 15.1 11.5-16.0 G/DL Hematocrit 42 35-52 % Mean Corpuscular Volume 93 80-99 FL Mean Corpuscular Hemoglobin 33 25-34 PG Mean Corpuscular Hemoglobin Concent 36 32-36 G/DL Red Cell Distribution Width 13.1 10.0-14.5 % Platelet Count 356 130-400 10^3/uL Mean Platelet Volume 9.8 7.4-10.4 FL Neutrophils (%) (Auto) 55 42-75 % Lymphocytes (%) (Auto) 28 12-44 % Monocytes (%) (Auto) 12 0-12 % Eosinophils (%) (Auto) 4 0-10 % Basophils (%) (Auto) 1 0-10 % Neutrophils # (Auto) 5.8 1.8-7.8 X 10^3 Lymphocytes # (Auto) 3.0 1.0-4.0 X 10^3 Monocytes # (Auto) 1.3 H 0.0-1.0 X 10^3 Eosinophils # (Auto) 0.5 H 0.0-0.3 10^3/uL Basophils # (Auto) 0.1 0.0-0.1 10^3/uL Sodium Level 138 135-145 MMOL/L Potassium Level 3.8 3.6-5.0 MMOL/L Chloride Level 106 98-107 MMOL/L Carbon Dioxide Level 22 21-32 MMOL/L Anion Gap 10 5-14 MMOL/L Blood Urea Nitrogen 7 7-18 MG/DL Creatinine 0.73 0.60-1.30 MG/DL Estimat Glomerular Filtration Rate > 60 BUN/Creatinine Ratio 10 Glucose Level 96 70-105 MG/DL Calcium Level 9.5 8.5-10.1 MG/DL Corrected Calcium 9.3 8.5-10.1 MG/DL Total Bilirubin 0.6 0.1-1.0 MG/DL Aspartate Amino Transf (AST/SGOT) 21 5-34 U/L Alanine Aminotransferase (ALT/SGPT) 15 0-55 U/L Alkaline Phosphatase 54 40-136 U/L Total Protein 7.1 6.4-8.2 GM/DL Albumin 4.3 3.2-4.5 GM/DL Amylase Level 34 25-125 U/L Lipase 17 8-78 U/L Micro Results Microbiology 09/29/17 Urine Culture - Final, Complete See Comments My Orders Orders - CYNTHIA GU Comprehensive Metabolic Panel (09/29/17 14:05) Lipase (09/29/17 14:05) Amylase (09/29/17 14:05) Ua Culture If Indicated (09/29/17 14:05) Saline Lock/Iv-Start (09/29/17 14:05) Cbc With Automated Diff (09/29/17 14:05) Ns Iv 1000 Ml (Sodium Chloride 0.9%) (09/29/17 14:15) Ondansetron Injection (Zofran Injectio (09/29/17 14:15) Urine Culture (09/29/17 14:20) Ct Abd/Pelv W (Appendicitis) (09/29/17 14:50) Iohexol Injection (Omnipaque 350 Mg/Ml 1 (09/29/17 15:00) Sodium Chloride Flush (Catheter Flush Sy (09/29/17 15:00) Ns (Ivpb) (Sodium Chloride 0.9%) (09/29/17 15:00) Pharmacy Communication (Pharmacy Communi (09/29/17 14:52) Medications Given in ED Vital Signs/I&O 09/29/17 09/29/17 13:56 16:04 Temp 97.4 Pulse 102 88 Resp 18 18 B/P (MAP) 149/86 (107) 115/79 Pulse Ox 96 99 O2 Delivery Room Air 09/30/17 00:00 Intake Total 1000 ml Balance 1000 ml Blood Pressure Mean: 107 Progress Progress Note : Progress Note I have seen and evaluated the patient. She has been informed of laboratory findings.She agrees with plans of care and discharge. I have seen prescriptions to [place] [facility] for treatment of her urinary tract infections. Return precautions given. Diagnostic Imaging Diagonstic Imaging: CT Plain Films/CT/US/NM/MRI: abdomen, pelvis Comments NAME: VI[facility]TORIYA RAMOS [facility] REC#: [id number] PHYSICIAN: CYNTHIA GU CC: CYNTHIA GU; JEAN-PAUL ZHENG MD Page 1 of 1 RADIOLOGY REPORT VIA [facility]. [place], [place] CC: CYNTHIA GU; JEAN-PAUL ZHENG MD Page 1 of 1 RADIOLOGY REPORT NAME: VIKTORIYA RAMOS [facility] REC#: [id number] PT STATUS: REG ER : 1980 PHYSICIAN: CYNTHIA GU ADMIT DATE: 09/29/17/ER Signed Date of Exam: 09/29/17 CT ABD/PELV W (APPENDICITIS) PROCEDURE: CT abdomen and pelvis with contrast, rule out appendicitis. TECHNIQUE: Multiple contiguous axial images were obtained through the abdomen and pelvis after the administration of intravenous contrast. INDICATION: Right lower quadrant pain and nausea. COMPARISON: No prior studies are available for comparison. FINDINGS: The lung bases are clear. The liver and gallbladder are unremarkable. The pancreas and spleen are unremarkable. No adrenal mass is identified. The kidneys are unremarkable. Aorta is non-aneurysmal. The appendix is visualized in the right lower quadrant, unremarkable. No CT evidence of acute appendicitis is seen. The small and large bowel loops are normal in caliber. No obstruction is seen. There is no ascites. The bladder is unremarkable. Uterus is surgically absent. Ovaries are unremarkable. IMPRESSION: No CT evidence of acute appendicitis. No acute feature is detected. Dictated by: Dictated on workstation # [id number] Dict: 09/29/17 1513 Trans: 09/29/17 1549 Interpreted by: JEAN-PAUL ZHENG MD Electronically signed by: JEAN-PAUL ZHENG MD 09/29/17 1549 Departure Impression Primary Impression: Urinary tract infection Qualified Codes: N39.0 - Urinary tract infection, site not specified Additional Impression: Nausea Disposition: 01 HOME, SELF-CARE Condition: Stable/Unchanged Departure-Patient Inst. Decision time for Depature: 15:23 Referrals: YUMIKO SHEIKH DO (PCP) Primary Care Physician JEFF REYES (Family) Primary Care Physician Add. Discharge Instructions: Take medication as directed. You may take Tylenol and ibuprofen as directed by the bottle for pain and fever. Follow up with her primary care provider within 1 week for recheck. Return back to the emergency room for any worsening symptoms or any other concerns as needed. All discharge instructions reviewed with patient and/or family. Voiced understanding. Scripts Nitrofurantoin Monohyd/M-Cryst (Macrobid 100 mg Capsule) 100 Mg Capsule 1 TAB PO BID for 7 Days, #14 CAP Prov: CYNTHIA GU 09/29/17 Ondansetron (Zofran Odt) 4 Mg Tab.rapdis 4 MG SL Q4H PRN for NAUSEA/VOMITING-1ST LINE, #14 TAB Prov: CYNTHIA GU 09/29/17 Phenazopyridine HCl (Pyridium) 100 Mg Tablet 100 MG PO Q8H for 2 Days, #6 TAB Prov: CYNTHIA GU 09/29/17 CYNTHIA GU Sep 29, 2017 14:38
[2017-09-29 14:45] LABS: BACTERIA,URINE LARGE /HPF; RBC,URINE RARE /HPF; SQUAMOUS EPITHELIAL CELL,UR 25-50 /HPF
[2017-09-29 14:58] LABS: ALANINE AMINOTRANSFERASE 15 U/L (0-55); ALBUMIN 4.3 GM/DL (3.2-4.5); ALKALINE PHOSPHATASE 54 U/L (40-136); AMYLASE 34 U/L (25-125); BILIRUBIN,TOTAL 0.6 MG/DL (0.1-1.0); BUN/CREATININE RATIO 10; CALCIUM 9.5 MG/DL (8.5-10.1); CARBON DIOXIDE 22 MMOL/L (21-32); CHLORIDE 106 MMOL/L (98-107); CREATININE SERUM 0.73 MG/DL (0.60-1.30); GFR ESTIMATED > 60; GLUCOSE 96 MG/DL (70-105); LIPASE 17 U/L (8-78); POTASSIUM 3.8 MMOL/L (3.6-5.0); SODIUM 138 MMOL/L (135-145); TOTAL PROTEIN 7.1 GM/DL (6.4-8.2)
[2017-09-29] MEDS ORDERED: NS 250 ML (IVPB) BAG IV ONE (15:00)
[2017-09-29] MEDS ORDERED: IOHEXOL 350 MG/ML 100 ML (OMNIPAQUE 350) VIAL IV ONE (15:00)
[2017-09-29] MEDS ORDERED: CATHETER FLUSH 10 ML SYR IV PRN (15:00)
--- NOTE | 2017-09-29 15:19 | Diagnostic Imaging Report ---
PROCEDURE: CT abdomen and pelvis with contrast, rule out appendicitis. TECHNIQUE: Multiple contiguous axial images were obtained through the abdomen and pelvis after the administration of intravenous contrast. INDICATION: Right lower quadrant pain and nausea. COMPARISON: No prior studies are available for comparison. FINDINGS: The lung bases are clear. The liver and gallbladder are unremarkable. The pancreas and spleen are unremarkable. No adrenal mass is identified. The kidneys are unremarkable. Aorta is non-aneurysmal. The appendix is visualized in the right lower quadrant, unremarkable. No CT evidence of acute appendicitis is seen. The small and large bowel loops are normal in caliber. No obstruction is seen. There is no ascites. The bladder is unremarkable. Uterus is surgically absent. Ovaries are unremarkable. IMPRESSION: No CT evidence of acute appendicitis. No acute feature is detected. Dictated by: Dictated on workstation # [id number]
[2017-09-29] MEDS ORDERED: ONDA4TAB8 SL (15:27)
[2017-09-29] MEDS ORDERED: NITR-65 PO (15:27)
[2017-09-29] MEDS ORDERED: PHEN-639 PO (15:27)
[2017-09-29 16:04] VITALS: BP 115/79
== END 2017-09-29 16:04 | disposition home or self-care (01) ==
LOC: EDUNIT# 13:51 → ER 13:54
DX: N39.0 Urinary tract infection, site not specified (principal); K21.9 Gastro-esophageal reflux disease without esophagitis; F17.210 Nicotine dependence, cigarettes, uncomplicated; Z90.710 Acquired absence of both cervix and uterus; Z88.5 Allergy status to narcotic agent
CPT/HCPCS: 36415; 74177; 80053; 81000; 82150; 83690; 85025; 87088